=== PATIENT | female | born 1945 | race African-American/Black ===

== ENCOUNTER 2016-07-28 15:38 | Emergency (ER) | payer MEDICARE, MEDICAID | END 2016-07-29 03:29 | disposition left against medical advice (07) | LOC: ER 15:39 | DX: R07.9 Chest pain, unspecified (principal); R06.02 Shortness of breath; Z53.21 Procedure and treatment not carried out due to patient leaving prior to being seen by health care provider ==

== ENCOUNTER 2017-02-07 06:22 | Emergency (ER) | payer MEDICARE, OTHER ==
[~2017-02-07] VITALS: Ht 170.2 cm; Wt 91.0 kg
[2017-02-07] MEDS ORDERED: FAMOTIDINE 20MG TABLET PO STA (07:20)
[2017-02-07] MEDS ORDERED: ACETAMINOPHEN 500MG TABLET PO ONE (07:30)
[2017-02-07 09:00] VITALS: BP 140/76
== END 2017-02-07 09:36 | disposition home or self-care (01) ==
LOC: ER 06:22
DX: J02.9 Acute pharyngitis, unspecified (principal); K21.0 Gastro-esophageal reflux disease with esophagitis; F32.9 Major depressive disorder, single episode, unspecified; Z90.49 Acquired absence of other specified parts of digestive tract; Z88.6 Allergy status to analgesic agent
CPT/HCPCS: 87070; 87430; 99284

== ENCOUNTER 2017-12-15 16:45 | Emergency (ER) | payer MEDICARE, OTHER ==
[~2017-12-15] VITALS: Ht 167.6 cm; Wt 94.0 kg
[2017-12-15 18:05] LABS: EOSINOPHILS % 2.7 % (0.0-5.0); HEMATOCRIT. 36.3 % (36.0-48.0); HEMOGLOBIN. 11.7 g/dL (12.0-16.0); MEAN CORPUSCULAR VOLUME 65.3 fL (81.0-99.0); MEAN PLATELET VOLUME 8.9 fl (7.4-10.4); MONOCYTES % 6.9 % (2.0-8.0); NEUTROPHILS % 49.4 % (40.0-76.0); PLATELET 218 x1000/uL (130-400); RED BLOOD CELL COUNT 5.56 mill/uL (4.2-5.4); RED CELL DISTRIBUTION WIDTH 16.5 % (11.6-14.6)
[2017-12-15 18:11] LABS: CHLORIDE 103 mEq/L (98-107)
[2017-12-15 18:55] LABS: PLATELET ESTIMATE NORMAL
[2017-12-15] MEDS ORDERED: DIAZEPAM 5 MG/ML 2ML CPJ IV ONE (20:15)
[2017-12-15] MEDS ORDERED: DIAZEPAM 2 MG TABLET PO ONE (20:30)
[2017-12-15] MEDS: DIAZEPAM 2 MG TABLET PO NR (20:43)
[2017-12-15 21:38] VITALS: BP 133/88
== END 2017-12-15 21:40 | disposition home or self-care (01) ==
LOC: ER 16:45
DX: S16.1XXA Strain of muscle, fascia and tendon at neck level, initial encounter (principal); D50.9 Iron deficiency anemia, unspecified; I10 Essential (primary) hypertension; M19.90 Unspecified osteoarthritis, unspecified site; R51 Headache; Z88.5 Allergy status to narcotic agent; X58.XXXA Exposure to other specified factors, initial encounter; Y93.89 Activity, other specified; Y92.89 Other specified places as the place of occurrence of the external cause; Y99.8 Other external cause status; Z91.19 Patient's noncompliance with other medical treatment and regimen
CPT/HCPCS: 36415; 71045; 80053; 83880; 84484; 85025; 93005; 99285

== ENCOUNTER 2024-03-02 13:50 | Emergency (ER) | payer MEDICARE, MEDICAID ==
[~2024-03-02] VITALS: Ht 170.2 cm; Wt 90.7 kg
[~2024-03-02 13:50] MED LIST: AMLO10TA80 MT; AMLO10TA80 PO; LOSA100T33 MT; OMEP40CA20 PO; PANT20TA17 PO
[2024-03-02 14:04] VITALS: TEMP 98.6; O2SAT 98
[2024-03-02 16:32] VITALS: BP 175/90; PULSE 99; RESP 16
[2024-03-02] MEDS: KETOROLAC 30MG/ML VIAL IM ONE (16:32)
[2024-03-02 17:15] LABS: BASOPHILS % 1.1 % (0.0-2.0); EOSINOPHILS % 3.1 % (0.0-5.0); HEMATOCRIT. 36.4 % (36.0-48.0); HEMOGLOBIN. 11.6 g/dL (12.0-16.0); LYMPHOCYTES % 32.6 % (20.0-50.0); MEAN CORPUSCULAR HGB CONC 31.8 g/dL (31.0-37.0); MEAN PLATELET VOLUME 8.6 fl (7.4-10.4); MONOCYTES % 6.1 % (2.0-8.0); NEUTROPHILS % 57.1 % (40.0-76.0); PLATELET 264 x1000/uL (130-400); RED BLOOD CELL COUNT 5.51 mill/uL (4.2-5.4); RED CELL DISTRIBUTION WIDTH 15.9 % (11.6-14.6); WHITE BLOOD COUNT 7.5 x1000/uL (4.5-11.0)
[2024-03-02 17:18] LABS: ADD RBC MORPHOLOGY YES; DIFFERENTIAL COMMENT 1
[2024-03-02 17:20] LABS: CHLORIDE 107 mEq/L (98-107); POTASSIUM 4.2 mEq/L (3.5-5.1); SODIUM 141 mEq/L (136-145)
[2024-03-02 17:21] LABS: CALCIUM 9.7 mg/dL (8.7-10.4); CARBON DIOXIDE 30 mEq/L (21-32)
[2024-03-02 17:25] LABS: INR 0.9; PARTIAL THROMBOPLASTIN TIME 26.7 sec (23.4-31.0); PROTHROMBIN TIME 10.3 sec (9.6-11.0)
[2024-03-02 17:26] LABS: CREATININE 0.8 mg/dL (0.6-1.0); GLUCOSE 106 mg/dL (70-105); UREA NITROGEN BLOOD 12 mg/dL (9-23)
[2024-03-02 17:27] LABS: TROPONIN I HIGH SENSITIVITY 8 ng/L (3.0-34)
[2024-03-02 17:36] LABS: MICROCYTOSIS 2+; PLATELET ESTIMATE NORMAL
[2024-03-02] MEDS ORDERED: CYCL10TA21 MT (18:48)
[2024-03-02] MEDS ORDERED: IBUP-2029 PO (18:48)
== END 2024-03-02 22:42 | disposition home or self-care (01) ==
LOC: ER 13:50
DX: M62.838 Other muscle spasm (principal); I10 Essential (primary) hypertension; Z88.5 Allergy status to narcotic agent; Z79.899 Other long term (current) drug therapy; J45.909 Unspecified asthma, uncomplicated; Z98.890 Other specified postprocedural states
CPT/HCPCS: 99285; 71045; 80048; 85025; 85610; 85730; 84484; 36415; 93005; 96372; J1885

== ENCOUNTER 2024-10-20 08:42 | Emergency (ER) | payer MEDICARE, MEDICAID ==
[~2024-10-20] VITALS: Ht 175.3 cm; Wt 88.0 kg
[~2024-10-20 08:42] MED LIST changes: +CYCL10TA21 MT; +IBUP-2029 PO
[2024-10-20 08:44] VITALS: TEMP 37; O2SAT 99
[2024-10-20] MEDS: ACETAMINOPHEN 325MG TABLET PO NR (09:56)
[2024-10-20] MEDS ORDERED: TOPUD PO (11:01)
[2024-10-20 11:12] VITALS: BP 173/79; PULSE 67; RESP 16; O2SAT 98
== END 2024-10-20 11:09 | disposition home or self-care (01) ==
LOC: ER 08:42
DX: J02.9 Acute pharyngitis, unspecified (principal); B97.89 Other viral agents as the cause of diseases classified elsewhere; I10 Essential (primary) hypertension; J45.909 Unspecified asthma, uncomplicated; Z79.899 Other long term (current) drug therapy; Z88.5 Allergy status to narcotic agent
CPT/HCPCS: 87070; 87430; 99283

== ENCOUNTER 2025-02-01 04:03 | Emergency (ER) | payer OTHER, MEDICAID ==
[~2025-02-01] VITALS: Ht 172.7 cm; Wt 86.3 kg
[~2025-02-01 04:03] MED LIST changes: +IBUP-1455 PO; -IBUP-2029 PO; +TOPUD PO
[2025-02-01 04:06] VITALS: O2SAT 99
[2025-02-01] MEDS: KETOROLAC 15MG/ML VIAL IV ONE (06:18)
[2025-02-01] MEDS: SODIUM CHLORIDE 0.9% 1,000 ML IV ONE (06:18)
[2025-02-01] MEDS: METOCLOPRAMIDE HCL 10MG/2ML VIAL IV ONE (06:18)
[2025-02-01 07:10] LABS: BASOPHILS % 1.7 % (0.0-2.0); EOSINOPHILS % 4.0 % (0.0-5.0); HEMATOCRIT. 32.6 % (36.0-48.0); HEMOGLOBIN. 10.7 g/dL (12.0-16.0); LYMPHOCYTES % 43.0 % (20.0-50.0); MEAN PLATELET VOLUME 8.9 fl (7.4-10.4); MONOCYTES % 7.0 % (2.0-8.0); NEUTROPHILS % 44.3 % (40.0-76.0); PLATELET 209 x1000/uL (130-400); RED BLOOD CELL COUNT 5.15 mill/uL (4.2-5.4); RED CELL DISTRIBUTION WIDTH 15.8 % (11.6-14.6)
[2025-02-01 07:27] LABS: ADD RBC MORPHOLOGY YES
[2025-02-01 07:34] LABS: CREATININE 0.9 mg/dL (0.6-1.0); UREA NITROGEN BLOOD 11 mg/dL (9-23)
[2025-02-01] MEDS ORDERED: IBUP-2028 PO (07:40)
[2025-02-01 07:45] VITALS: TEMP 36.6
[2025-02-01] MEDS: AMLODIPINE 10MG TABLET PO ONE (08:10)
[2025-02-01 08:36] VITALS: O2SAT 98
[2025-02-01 09:02] VITALS: BP 191/113; PULSE 85; RESP 18; TEMP 97.9
[2025-02-01] MEDS ORDERED: HYDRALAZINE 20MG/ML VIAL IV PRN (09:30)
[2025-02-01] MEDS ORDERED: IPRATROPIUM/ALBUTEROL 0.5-3(2.5)MG/3ML NEB HHN PRN (09:30)
[2025-02-01] MEDS ORDERED: ONDANSETRON HCL 4MG/2ML INJ IV PRN (09:30)
[2025-02-01] MEDS ORDERED: ACETAMINOPHEN 325MG TABLET PO PRN ×2 (09:30)
[2025-02-01] MEDS ORDERED: PANTOPRAZOLE SODIUM 40 MG/VIAL IV SCH (10:00)
[2025-02-01] MEDS ORDERED: LOSARTAN 100 MG TABLET PO SCH (10:00)
[2025-02-01 10:12] LABS: PLATELET ESTIMATE NORMAL
[2025-02-01] MEDS ORDERED: IBUP-1455 MT (17:44)
[2025-02-01] MEDS ORDERED: CYCL5TAB3 MT (17:44)
== END 2025-02-01 09:20 | disposition left against medical advice (07) ==
LOC: ER 04:03 → EDBEDREQTM 09:13 → EDBEDREQ 09:13 → ER 09:20 → CANBEDREQ 09:23
DX: G44.209 Tension-type headache, unspecified, not intractable (principal); I16.0 Hypertensive urgency; J45.909 Unspecified asthma, uncomplicated; Z90.710 Acquired absence of both cervix and uterus; Z79.899 Other long term (current) drug therapy; Z88.5 Allergy status to narcotic agent
CPT/HCPCS: 99284; 96374; 96361; 96375; 80048; 85025; 36415; J1885; J2765; J7030

== ENCOUNTER 2025-02-01 15:17 | Emergency (ER) | payer OTHER, MEDICAID ==
[~2025-02-01] VITALS: Ht 170.2 cm; Wt 82.0 kg
[~2025-02-01 15:17] MED LIST changes: +IBUP-2028 PO
[2025-02-01 15:29] VITALS: TEMP 37; O2SAT 98
[2025-02-01] MEDS: KETOROLAC 30MG/ML VIAL IM ONE (17:21)
[2025-02-01 17:27] VITALS: BP 175/92; PULSE 89; RESP 18; O2SAT 100
[2025-02-01] MEDS ORDERED: IBUP-1455 MT (17:44)
[2025-02-01] MEDS ORDERED: CYCL5TAB3 MT (17:44)
== END 2025-02-01 18:02 | disposition home or self-care (01) ==
LOC: ER 15:17
DX: G44.209 Tension-type headache, unspecified, not intractable (principal); F41.9 Anxiety disorder, unspecified; I10 Essential (primary) hypertension; J45.909 Unspecified asthma, uncomplicated; Z79.899 Other long term (current) drug therapy; Z90.710 Acquired absence of both cervix and uterus; Z88.5 Allergy status to narcotic agent
CPT/HCPCS: 99283; 96372; J1885